=== PATIENT | male | born 1985 | race Caucasian/White ===

== ENCOUNTER 2016-10-07 | Inpatient (IN) | payer OTHER ==
[~2016-10-07] VITALS: Ht 188 cm; Wt 80.7 kg
[~2016-10-07] MED LIST: BACTRIM DS TABL1 TAB PO; VICODIN 5/500 T1 TAB PO
--- NOTE | ~2016-10-07 | HP ---
Unit #: [id number] #: [id number] Patient: EN CHINO [id number] [place] [address] [id number] MR#: [id number] NAME: EN CHINO. ROOM: P212 Age: 31 Sex: M Admission Date: 10/07/2016 : 1985 Attending Physician: Jayleen Hunter M.D. Admitting Physician: Jayleen Hunter M.D. Primary Care Physician: Generic Doctor Not In System HISTORY AND PHYSICAL HISTORY OF PRESENT ILLNESS En is a 31-year-old male admitted on 10/07/[address] [place] [address] for depression, suicidal ideation, and detox from heroin. PAST MEDICAL HISTORY None. PAST SURGICAL HISTORY None. SOCIAL HISTORY 1. Smokes one pack of cigarettes daily. 2. Occasional binge alcohol use and heroin use. He is currently single and homeless. FAMILY HISTORY Noncontributory. REVIEW OF SYSTEMS CONSTITUTIONAL: No fever or chills. HEENT: Denies any sore throat, ear pain or runny nose. CARDIOVASCULAR: Denies chest pain, irregular heart rhythm or palpitations. CHEST: Denies shortness of breath or cough. No hemoptysis. GASTROINTESTINAL: Denies nausea, vomiting, diarrhea or chronic constipation. ENDOCRINE: Denies history of increased thirst or urination. No recent significant weight loss or gain. GENITOURINARY: Denies dysuria, frequency, or hematuria. SKIN: Denies any rashes. HEMATOLOGIC: Denies history of increased bleeding or bruising. MUSCULOSKELETAL: Denies any hot, swollen joints. No generalized muscle pain. NEUROLOGIC: Denies problems with vision or speech. No frequent, severe headaches. No numbness, tingling or weakness in any extremities. Denies loss of bladder or bowel control. CURRENT MEDICATIONS Celexa. ALLERGIES No known drug allergies. Unit #: [id number] #: [id number] Patient: EN CHINO PHYSICAL EXAMINATION GENERAL: Alert, oriented, in no acute distress. VITAL SIGNS: Blood pressure 130/82, heart rate 97, respirations 17, temperature 99.9. HEIGHT: 6 foot 2 inches. WEIGHT: 178 pounds. SKIN: Warm and dry without rash or lesion. HEENT: Normocephalic. TMs not viewed. Oral and nasal passages clear. Conjunctivae clear. PERRLA. EOMs intact. NECK: Supple without lymphadenopathy or thyromegaly. HEART: Regular rate and rhythm without murmur. LUNGS: Clear. ABDOMEN: Soft, nontender, without masses or hepatosplenomegaly. : Not done. EXTREMITIES: No evidence of cyanosis, clubbing or edema. Moves all without focal deficit. NEUROLOGICAL: Grossly within normal limits. Cranial Nerves: II: Visual lozano are intact. III, IV AND : Extraocular movements are intact. Pupils are equal, round and reactive to light. V: Facial sensation is grossly normal. VII: Facial movements and expression are normal. VIII: Auditory acuity grossly intact. IX, X: Uvula is midline. Phonation is normal. XI: Patient shrugs shoulders and turns head normally. XII: Tongue protrudes in the midline. Sensory and Motor Function: Sensory and motor sensation is grossly normal. Motor: moves all extremities well. Coordination: Gait is normal. Deep Tendon Reflexes: Intact. IMPRESSION Psychiatric admission. RECOMMENDATIONS Psychiatric, per psychiatrist. MEDICAL: I see no contraindications to participating in facility's activities. MEDICAL PROGNOSIS Good. MEDICAL CONDITION Stable. Dictated by... Espinoza Beltre TD: 10/08/2016 01:32 JOB #: [id number] Unit #: [id number] #: [id number] Patient: EN CHINO HISTORY AND PHYSICAL Page 1 of 1 X JAIMEE RICHTER APRN X HISTORY AND PHYSICAL
--- NOTE | ~2016-10-07 | DS ---
Unit #: [id number] #: [id number] Patient: FLORENCIO CHINO [id number] [facility] [address] [place] [address] [id number] MR#: [id number] NAME: FLORENCIO CHINO. ROOM: P212 Age: 31 Sex: M Admission Date: 10/07/2016 : 1985 Discharge Date: 10/09/2016 Attending Physician: Jayleen Hunter M.D. Primary Care Physician: Generic Doctor Not In System DISCHARGE SUMMARY REASON FOR ADMISSION The patient is a 31-year-old white male, admitted to the care of Dr. Hunter with a history of heroin use and suicidal ideation. HOSPITAL COURSE The patient was admitted to the care of Dr. Hunter and placed on routine detoxification protocol and for opioids and suicide precautions. His stay in the hospital was a brief and uneventful one. By 10/09/2016, the patient was in brighter spirits and exhibited no signs or symptoms of withdrawal. He requested discharge from this facility stating a plan to follow up with [facility] and discharge was ordered. FINAL DIAGNOSIS Opioid use disorder. DISPOSITION ON DISCHARGE The patient is discharged on no psychotropic or other medications. FOLLOWUP Follow up will take place through the auspices of "[facility]." PROGNOSIS The patient's prognosis is considered fair. Dictated by... Fabián Kowalski M.D. CB/justin TD: 10/09/2016 14:29 JOB #: [id number] DISCHARGE SUMMARY Page 1 of 1 X Fabián Kowalski MD X DISCHARGE SUMMARY
--- NOTE | ~2016-10-07 | PA ---
Unit #: [id number] #: [id number] Patient: FLORENCIO CHINO [id number] [facility] [address] [place] [address] [id number] MR#: [id number] NAME: FLORENCIO CHINO. ROOM: P212 Age: 31 Sex: M Admission Date: 10/07/2016 : 1985 Date of Assessment: 10/07/2016 Attending Physician: Jayleen Hunter M.D. Admitting Physician: Jayleen Hunter M.D. Primary Care Physician: Generic Doctor Not In System PSYCHIATRIC ASSESSMENT DATE OF SERVICE 10/07/2016. IDENTIFYING DATA Mr. Chino is a 31-year-old single white male, who is a resident of [place], [place], and was self-referred to the hospital on a voluntary basis. CHIEF COMPLAINT "Extremely hopeless state of mind." HISTORY OF PRESENT ILLNESS Mr. Chino is a 31-year-old white male with history of mood disorder and substance abuse, who was self-referred to the hospital reporting increasing depression, feelings of hopelessness and that he was downtown yesterday and decided to walk to the top of the parking garage and looked over the edge of the garage and contemplated jumping over and committing suicide and reports that he has been feeling depressed for the last couple of months and that his drug of choice is heroin and reports that he used approximately a gram of heroin on a daily basis. He is currently unemployed and is unable to maintain his employment for more than 2 days at a time and recently worked at [employer] and the electricity went out, though he reports that he saw this as an excuse to go home and engage in heroin use and reports that he is not enrolled in school and reports that he is homeless and his father in 11/2015. He also stated that his grandfather was his only role model and he while the patient was incarcerated and now he has no income, no social support system, and no hopes and feels suicidal and as such, a recommendation for inpatient level of care for safety and stabilization was made and the patient was transferred to us. SUBSTANCE ABUSE HISTORY The patient reports history of methamphetamine abuse, but opioids, particularly IV heroin has been his drug of choice, though he reports that he has been using opioids for the last 10 years and has been using IV on a daily basis. PAST PSYCHIATRIC HISTORY The patient has not had any prior inpatient or outpatient chemical dependency treatment and is currently not active in any treatment program, is not seeing a psychiatrist, and is not taking any psychotropic medications. Unit #: [id number] #: [id number] Patient: FLORENCIO CHINO PAST MEDICAL HISTORY No acute or chronic medical illnesses. ALLERGIES No known medication allergies. CURRENT MEDICATIONS None. PERSONAL AND SOCIAL HISTORY A 31-year-old white male, who reports that he is single, unemployed, and essentially homeless and has poor social support system. MENTAL STATUS EXAMINATION Young white male, who was casually dressed with a fair personal hygiene, appears to be in no acute distress or discomfort. He was awake and alert on interaction with intact orientation to time, place, and person. His mood was anxious with a congruent affect. His speech was slow and goal directed. He reports some suicidal ideation, but denies any homicidal ideations and also denies any auditory or visual hallucinations. His insight and judgment remain slightly impaired. DIAGNOSTIC IMPRESSION Psychiatric: Major depressive disorder, recurrent, moderate, without psychotic features; opioid dependence, moderate; and methamphetamine abuse, moderate. Medical: None. Stressors: Moderate psychosocial stressors. TREATMENT PLAN 1. The patient has presented with a history of substance abuse and mood disorder and has been decompensating and will need inpatient hospitalization for safety and stabilization. We will start him on his home medications. We will adjust the medications. We will start him on detox protocol. 2. Supportive therapy was provided to the patient. 3. Safe, structured, and nourishing environment will be provided. ESTIMATED LENGTH OF STAY 5 to 7 days. ABILITY TO HELP SELF Limited. WILLINGNESS TO HELP SELF The patient appears to be willing to help self. STRENGTHS 1. Communicative. 2. Cooperative. PROBLEMS 1. Chronic dysphoric symptoms. 2. Poor social support system. 3. Chronic chemical dependency. DISCHARGE CRITERIA This will be contingent upon the patient's ability to show resolution of his depression and anxiety and his ability to stay safe to himself, Unit #: [id number] #: [id number] Patient: FLORENCIO CHINO particularly after discharge from the hospital. Dictated by... Bob Medellin/justin TD: 10/07/2016 14:08 JOB #: [id number] PSYCHIATRIC ASSESSMENT Page 1 of 1 X Jayleen Hunter MD PSYCHIATRIC ASSESSMENT
--- NOTE | ~2016-10-07 | PN ---
Unit #: [id number] #: [id number] Patient: FLORENCIO CHINO [id number] [facility] [address] [place] [address] [id number] MR#: [id number] NAME: FLORENCIO CHINO. ROOM: P212 Age: 31 Sex: M Admission Date: 10/07/2016 : 1985 Attending Physician: Jayleen Hunter M.D. Admitting Physician: Jayleen Hunter M.D. Primary Care Physician: Generic Doctor Not In System [facility] PROGRESS NOTES DATE 10/08/2016 DISCUSSION The patient voices no new complaints today and his detox continues uneventfully. We continue to await word regarding disposition. Dictated by... Fabián Kowalski M.D. CB/darvin TD: 10/09/2016 03:05 JOB #: [id number] [facility] PROGRESS NOTES Page 1 of 1 X Fabián Kowalski MD X PROGRESS NOTE
[2016-10-08 10:37] LABS: BASOPHIL% 0.4 % (0-2.5); EOSINOPHIL# 0.1 X10e3 (0-0.7); EOSINOPHIL% 1.7 % (0.0-7.0); HEMATOCRIT 42.8 % (38.0-50.0); HEMOGLOBIN 14.7 gm/dL (13.0-16.0); LYMPHOCYTE# 1.6 X10e3 (1.0-3.5); LYMPHOCYTE% 23.2 % (17.0-45.0); MEAN CELL VOLUME 92.2 FL (83-96); MEAN CORPUSCULAR HEMOGLOBIN 31.6 PG (28-34); MEAN CORPUSCULAR HGB CONC 34.3 g/dL (30-36); MEAN PLATELET VOLUME 8.5 FL (6.5-11.5); MONOCYTE# 0.5 X10e3 (0-1.0); MONOCYTE% 7.7 % (3.0-12.0); NEUTROPHIL# 4.6 X10e3 (1.5-7.1); PLATELET COUNT 170 X10e3 (140-420); RED BLOOD COUNT 4.64 X10e (3.90-5.60); RED CELL DISTRIBUTION WIDTH 13.8 % (11.0-15.5); WHITE BLOOD COUNT 6.8 X10e3 (4.0-10.5)
[2016-10-08 11:01] LABS: DIFF IND NO
[2016-10-08 11:20] LABS: BILIRUBIN,TOTAL 0.7 mg/dL (0.2-2.0); BUN/CREATININE RATIO 17.14; CREATININE SERUM 0.7 mg/dL (0.6-1.4); GLOM FILT RATE Estimated 126.7 mL/min (>60); POTASSIUM 4.2 mmol/L (3.5-5.1); PROTEIN TOTAL SERUM 6.9 g/dL (6.0-8.3)
[2016-10-08 12:31] LABS: URINE APPEARANCE TURBID; URINE BILIRUBIN NEG (NEG); URINE BLOOD NEG (NEG); URINE COLOR DK YELLOW; URINE GLUCOSE NEG (NEG); URINE KETONE NEG (NEG); URINE LEUKOCYTE ESTERASE NEG (NEG); URINE NITRATE NEG (NEG); URINE PH 7.5 (5-8); URINE PROTEIN NEG (NEG); URINE SPECIFIC GRAVITY 1.017 (1.003-1.035)
[2016-10-08 12:59] LABS: AMPHETAMINE POS (NEG); BARBITURATES NEG (NEG); BENZODIAZEPINES NEG (NEG); COCAINE NEG (NEG); MARIJUANA NEG (NEG); OPIATES POS (NEG); TRICYCLIC ANTIDEPRESSANTS NEG (NEG); U METHADONE NEG (NEG)
== END 2016-10-09 13:35 | disposition home or self-care (01) | DRG 885 ==
LOC: P2S 02:01
PROVIDERS: Psychiatry & Neurology Psychiatry
PROC: HZ2ZZZZ Detoxification Services for Substance Abuse Treatment (ICD-10-PCS; principal; 2016-10-07)
DX: F33.1 Major depressive disorder, recurrent, moderate (principal); F11.20 Opioid dependence, uncomplicated; F15.10 Other stimulant abuse, uncomplicated; Z59.0 Homelessness
CPT/HCPCS: 80053; 80307; 81003; 85025; 86592

== ENCOUNTER 2016-10-10 23:24 | Emergency (ER) | payer OTHER ==
[~2016-10-10] VITALS: Ht 185.4 cm; Wt 77.1 kg
== END 2016-10-11 03:13 | disposition left against medical advice (07) ==
LOC: CED 23:24
DX: Z53.21 Procedure and treatment not carried out due to patient leaving prior to being seen by health care provider (principal)